=== PATIENT | female | born 1990 | race Caucasian/White ===

== ENCOUNTER → 2019-06-04 17:21 | Outpatient (CLI) | payer OTHER, SELFPAY ==
[2019-06-04 19:22] LABS: Basophils % 0.6 % (0.1-2.0); Eosinophils # 0.1 K/mm3 (0.0-0.4); Eosinophils % 1.8 % (0.1-12.0); Hematocrit 45.4 % (37.0-47.0); Hemoglobin 14.9 g/dL (12.2-16.2); Lymphocytes # 1.7 K/mm3 (0.7-4.5); Lymphocytes % 31.8 % (10-50); Mean Corpuscular HGB Conc 32.9 g/dL (31.8-35.4); Mean Corpuscular Hemoglobin 31.3 pg (27.0-31.2); Mean Corpuscular Volume 95.1 fl (81-99); Mean Platelet Volume 8.2 fl (7.4-10.4); Monocytes # 0.5 K/mm3 (0.1-1.0); Neutrophils # 3.1 K/mm3 (1.8-7.8); Neutrophils % 56.8 % (37.0-80.0); Platelet Count 210 K/mm3 (142-424); Red Blood Count 4.77 M/mm3 (4.20-5.40); Red Cell Distribution Width 13.2 % (11.5-17.5); White Blood Count 5.5 K/mm3 (4.8-10.8)
[2019-06-04 20:03] LABS: Alanine Aminotransferase 107 U/L (12-78); Albumin Level 4.4 gm/dL (3.4-5.0); Albumin/Globulin Ratio 0.9 (1.1-1.8); Alkaline Phosphatase 135 U/L (46-116); Aspartate Amino Transferase 102 U/L (15-37); Bilirubin,Total 0.4 mg/dL (0.2-1.0); Blood Urea Nitrogen 7 mg/dL (7-18); Calcium 8.9 mg/dL (8.5-10.1); Carbon Dioxide 21 mmol/L (21.0-32.0); Chloride 101 mmol/L (98-107); Chol/HDL Ratio 2.1 (1-3.5); Cholesterol 243 mg/dL (140-200); Creatinine,Serum 0.67 mg/dL (0.55-1.02); Estimated Glomerular Filt Rate 104 ml/min (>60); GFR (African American) 126 ML/MIN (>60); Globulin 4.9 gm/dl (1.3-3.2); Glucose 93 mg/dL (74-106); HDL Cholesterol 116 mg/dL (29-89); LDL Cholesterol 106 mg/dL (0-130); Sodium 138 mmol/L (136-145); T4 (Thyroxine) 10.3 ug/dl (4.7-13.3); Thyroid Stimulating Hormone 1.06 uIU/ml (0.358-3.740); Total Protein,Serum 9.3 gm/dL (6.4-8.2); Triglycerides 103 mg/dL (30-200); VLDL Cholesterol 21 mg/dL (0-40)
[2019-06-07 09:42] LABS: Vitamin D 25 Hydroxy 44.5 ng/mL (30.0-100.0)
== END ==
PROVIDERS: Visit Provider Physician Assistant
DX: F41.9 Anxiety disorder, unspecified (principal)
CPT/HCPCS: 80053; 80061; 82652; 84436; 84443; 85025

== ENCOUNTER → 2019-06-05 14:51 | Outpatient (CLI) | payer OTHER, SELFPAY ==
[2019-06-07 10:11] LABS: Hep A Ab, IgM Negative (Negative); Hepatitis B Core Antibody IgM Negative (Negative); Hepatitis B Surface Antigen Negative (Negative)
[2019-06-07 12:07] LABS: Hepatitis C Antibody >11.0 s/co ratio (0.0-0.9)
== END ==
PROVIDERS: PCP Physician Assistant; Visit Provider Physician Assistant
DX: R74.8 Abnormal levels of other serum enzymes (principal)
CPT/HCPCS: 80074

== ENCOUNTER → 2019-08-27 13:18 | Outpatient (CLI) | payer OTHER, SELFPAY ==
[2019-08-31 01:07] LABS: HCV Genotype Charge YES; HCV RNA (International Units) 12600000 IU/mL (.); Hepatitis C Genotype 1a (.)
== END ==
PROVIDERS: Visit Provider Physician Assistant
DX: Z86.19 Personal history of other infectious and parasitic diseases (principal); R76.8 Other specified abnormal immunological findings in serum
CPT/HCPCS: 36415; 87522; 87902

== ENCOUNTER 2021-07-28 18:40 | Emergency (ER) | payer MEDICAID, SELFPAY ==
[2021-07-28 18:41] VITALS: BP 159/111; PULSE 116; RESP 18; TEMP 36.8; O2SAT 98; BMI 21.4
[2021-07-28 19:30] VITALS: BP 148/94; PULSE 98; O2SAT 100
[2021-07-28 20:00] VITALS: BP 149/101; PULSE 91; O2SAT 100
[2021-07-28 20:31] VITALS: BP 148/96; PULSE 90; O2SAT 100
[2021-07-28 21:31] LABS: Microscopic, Urine URINE MICROSCOPIC (MICROSCOPIC)
[2021-07-28 21:36] LABS: Appearance,Urine CLOUDY (Clear); Bilirubin,Urine Negative (Negative); Blood, Urine Negative (Negative); Color,Urine DK YELLOW (Yellow); Glucose,Urine (UA) Negative (Negative); Ketones,Urine Negative (Negative); Leukocyte Esterase,Urine 3+ (Negative); Nitrate,Urine POSITIVE (Negative); PH,Urine 7.5 (5.0-8.5); Protein,Urine TRACE (Negative)
--- NOTE | 2021-07-28 21:36 | HMH.EDANX ---
ED Disposition Clinical Impression: Drug use Cellulitis Qualifiers: Site of cellulitis: face Qualified Code(s): L03.211 - Cellulitis of face Disposition: Home, Self-Care Condition on Discharge: Good Instructions: DI for Drug or Alcohol Withdrawal Additional Instructions: use meds and see pcp monday Prescriptions: Minocycline HCl [Minocycline HCl 100mg Tab*] 100 mg PO BID #20 tab Transmission Status: Pending to [place] [id number] Referrals: Samuel Crane MD [Primary Care Provider] - - Critical Care Critical Care Time: No Attestation: On 07/28/21, the high probability of a clinically significant, sudden or life threatening deterioration of the following system(s) required my full and direct attention, intervention and personal management. The time I documented below is in addition to time spent performing reported procedures but includes the following listed in this critical care notation. Medical Decision Making - Medical Records Medical records reviewed: Yes: I reviewed the patient's medical records. - Koko Inquiry Pt receiving controlled substance: No Vital Signs: 07/28/21 18:41 07/28/21 19:30 07/28/21 20:00 Temperature 98.3 F Temperature Source Oral Pulse Rate 98 H 91 H Pulse Rate [Right Radial] 116 H Respiratory Rate 18 Blood Pressure 148/94 H 149/101 H Blood Pressure [Right Arm] 159/111 H Blood Pressure Mean [Right Arm] 127 Blood Pressure Source [Right Arm] Automatic Cuff Blood Pressure Position [Right Arm] Sitting 02 Sat by Pulse Oximetry 98 100 100 Oxygen Delivery Method Room Air Room Air Room Air 07/28/21 20:31 Temperature Temperature Source Pulse Rate 90 Pulse Rate [Right Radial] Respiratory Rate Blood Pressure 148/96 H Blood Pressure [Right Arm] Blood Pressure Mean [Right Arm] Blood Pressure Source [Right Arm] Blood Pressure Position [Right Arm] 02 Sat by Pulse Oximetry 100 Oxygen Delivery Method - Lab Data Lab results reviewed: Yes: I reviewed the patient's lab results. Orders (Tests/Meds): ED MEDICATIONS Discontinued Medications Generic Name Dose Route Start Last Admin Trade Name Freq PRN Reason Stop Dose Admin Clonidine HCl 0.1 mg 07/28/21 21:17 07/28/21 21:26 Clonidine 0.1mg Tablet PO 07/28/21 21:18 0.1 mg ONCE ONE Administration Lorazepam 1 mg 07/28/21 21:17 07/28/21 21:25 Lorazepam 1mg Tablet PO 07/28/21 21:18 1 mg ONCE ONE Administration ORDERS Category Date Time Status C-Reactive Protein Stat Lab 07/28/21 21:22 Received Complete Blood Count Auto Diff Stat Lab 07/28/21 21:22 Received Comprehensive Metabolic Panel Stat Lab 07/28/21 21:22 Received Erythrocyte Sedimentation Rate Stat Lab 07/28/21 21:22 Received UDS [Drug Screen,Urine] Stat Lab 07/28/21 21:28 Received Urinalysis and Microscopic Stat Lab 07/28/21 21:28 Received Medical Decision Narrative: will give meds and have pt be seen in the ed Anxiety HPI - General Chief Complaint: Altered Mental Status Stated Complaint: MRSA on Face/Neck Time Seen by Provider: 07/28/21 20:00 Mode of Arrival: Ambulatory Source of Information: Patient, Medical Record Limitations: No Limitations Description of Symptoms (Recalled from ER Triage Doc. by RN): Pt states that she is currently trying to take herself off of heroin and ice. Pt states that she has not had heroin in 4 days and ice in 5 days. Pt advises that she is now beginning to hallucinate. Pt also expressess concern for some areas on her face and arms that she worries could be infected with MRSA d/t hx of. - History of Present Illness HPI narrative: pt with recent use of heroin and meth - pt with no fever and denied ivdu - also concern about mrsa MD complaint: anxiety Onset (ago): day(s) Symptoms: other (general anxiety ) Severity: moderate Quality: intermittent History of similar episodes: No Provoking factors: other (drug use ) Associated symptoms: denies other
[2021-07-28 21:46] LABS: Barbiturates Screen,Urine Negative ng/ml (<200)
[2021-07-28 21:47] LABS: Benzodiazepines Screen,Urine Positive ng/ml (<200)
[2021-07-28 21:48] LABS: Methadone Screen,Urine Negative ng/ml (<300); WBC,Urine TNTC #/hpf (0-3)
[2021-07-28 21:49] LABS: Bacteria,Urine 2+ /lpf; Cannabinoid Screen,Urine Negative ng/ml (<50)
[2021-07-28 21:50] LABS: Cocaine Screen,Urine Negative ng/ml (<300); Opiate Screen,Urine Negative ng/ml (<300)
[2021-07-28 21:51] LABS: Phencyclidine Screen,Urine Negative ng/ml (<25)
[2021-07-28 21:57] LABS: Basophils # 0.1 K/mm3 (0-0.2); Eosinophils # 0.3 K/mm3 (0.0-0.4); Eosinophils % 2.6 % (0.1-12.0); Hematocrit 42.9 % (37.0-47.0); Hemoglobin 14.2 g/dL (12.2-16.2); Lymphocytes # 2.8 K/mm3 (0.7-4.5); Lymphocytes % 28.6 % (10-50); Mean Corpuscular HGB Conc 33.2 g/dL (31.8-35.4); Mean Corpuscular Hemoglobin 28.5 pg (27.0-31.2); Mean Corpuscular Volume 85.9 fl (81-99); Mean Platelet Volume 8.6 fl (7.4-10.4); Monocytes # 0.5 K/mm3 (0.1-1.0); Monocytes % 5.4 % (1.7-9.3); Neutrophils # 6.2 K/mm3 (1.8-7.8); Neutrophils % 62.4 % (37.0-80.0); Platelet Count 299 K/mm3 (142-424); Red Blood Count 4.99 M/mm3 (4.20-5.40); Red Cell Distribution Width 13.3 % (11.5-17.5); White Blood Count 9.9 K/mm3 (4.8-10.8)
[2021-07-28 21:58] VITALS: BP 145/88; PULSE 90; RESP 19; TEMP 36.7; O2SAT 98
[2021-07-28 22:30] LABS: Erythrocyte Sedimentation Rate 15 mm/hr (0-20)
[2021-07-28 22:35] LABS: Alanine Aminotransferase 31 U/L (12-78); Albumin Level 4.1 g/dl (3.5-5.0); Albumin/Globulin Ratio 1.1 (1.1-1.8); Alkaline Phosphatase 91 U/L (38-126); Anion Gap 10.4 mEq/L (5-15); Aspartate Amino Transferase 38 U/L (14-36); Bilirubin,Total 0.3 mg/dl (0.2-1.3); Blood Urea Nitrogen 14 mg/dl (7-17); Calcium 8.7 mg/dl (8.4-10.2); Carbon Dioxide 24 mmol/L (22.0-30.0); Chloride 109 mmol/L (98-107); Creatinine Clearance Estimated 122 mL/min (50-200); Estimated Glomerular Filt Rate 117 ml/min (>60); GFR (African American) 141 ML/MIN (>60); Globulin 3.9 g/dL (1.3-3.2); Glucose 100 mg/dl (74-100); Potassium 4.4 mmoL/L (3.5-5.1); Sodium 139 mmol/L (136-145)
[2021-07-28 22:40] LABS: C-Reactive Protein 0.6 mg/L (0-4)
[2021-08-02 20:49] LABS: Amphetamine Positive (.); Amphetamine (GC/MS) 2052 ng/mL (Cutoff=500); Amphetamines Positive (.); Methamphetamine Positive (.); Methamphetamine (GC/MS) >3000 ng/mL (Cutoff=500)
== END 2021-07-28 22:04 | disposition home or self-care (01) ==
PROVIDERS: Emergency Provider Emergency Medicine; PCP Emergency Medicine
DX: L03.211 Cellulitis of face (principal); F19.90 Other psychoactive substance use, unspecified, uncomplicated; F41.8 Other specified anxiety disorders; F17.210 Nicotine dependence, cigarettes, uncomplicated; I10 Essential (primary) hypertension
CPT/HCPCS: 80053; 80305; 80324; 81001; 85025; 85651; 86140; 87086; 87088; 87186; 99282

== ENCOUNTER 2021-10-13 10:20 | Emergency (ER) | payer MEDICAID, SELFPAY ==
--- NOTE | 2021-10-13 10:26 | HMH.EDWNDL ---
ED Disposition Clinical Impression: (Ruled Out): Abscess Disposition: Home, Self-Care Condition on Discharge: Good Instructions: Cellulitis Prescriptions: Sulfamethoxazole/Trimethoprim [Bactrim DS tablet] 2 each PO BID #28 tab Transmission Status: Pending to [id number] Mupirocin Calcium [Mupirocin 2% Cream 15gm] 1 applicatio TP 5XDAY #14 gm Transmission Status: Pending to [id number] Referrals: Samuel Crane MD [Primary Care Provider] - - Critical Care Critical Care Time: No Attestation: On , the high probability of a clinically significant, sudden or life threatening deterioration of the following system(s) required my full and direct attention, intervention and personal management. The time I documented below is in addition to time spent performing reported procedures but includes the following listed in this critical care notation. Medical Decision Making - Koko Inquiry Pt receiving controlled substance: No Medical Decision Narrative: Patient presents with normal vital signs. Physical exam demonstrates superficial ulcerations/sores. These do not have the appearance of abscess or drainable infection. Low suspicion of bacterial infection however will empirically cover with Bactrim. Wound/Laceration HPI - General Stated Complaint: sores on face Time Seen by Provider: 10/13/21 10:30 Mode of Arrival: Ambulatory Source of Information: Patient Limitations: No Limitations - History of Present Illness HPI narrative: Patient presents for evaluation of multiple sores. The source of been present for approximately 2 weeks. They're located on her left ear, left maxillary prominence, forehead and around her right cuticle of her thumb. Patient has not had recent antibiotics. Patient has not required any incision and drainage. Patient states she has been able to express purulence from one location. No systemic symptoms reported Location: scalp, face - Related Data Previous Rx's Medication Instructions Recorded triamcinolone acetonide 0.5 % 1 applic TOPICAL TID #15 g 05/11/21 topical cream Minocycline HCl [Minocycline HCl 100 mg PO BID #20 tab 07/28/21 100mg Tab*] clonazepam 1 mg tablet 1 mg PO BID 20 Days #40 tab 07/30/21 clonazepam 1 mg tablet 1 mg PO TID 10 Days #30 tab 07/30/21 levofloxacin 500 mg tablet 500 mg PO DAILY #7 tab 07/30/21 lisinopril 10 mg tablet 10 mg PO DAILY #30 tab 09/02/21 Mupirocin Calcium [Mupirocin 2% 1 applicatio TP 5XDAY #14 gm 10/13/21 Cream 15gm] Sulfamethoxazole/Trimethoprim 2 each PO BID #28 tab 10/13/21 [Bactrim DS tablet] Allergies Allergy/AdvReac Type Severity Reaction Status Date / Time No Known Allergies Allergy Verified 07/30/21 13:13 [facility] History - Hepatitis A Screen Attestation statement:: This patient has been screened for Hepatitis A risk factors. Medical History: Reports:: Anxiety, Depression, Hypertension, MRSA Other Surgeries: Yes: Appendectomy Amputation: No Fractures: No - Social History Smoking Status: Current every day smoker Tobacco Type: cigarettes # Packs/Day (cigarettes): 1 Alcohol Intake: current Alcohol Intake Frequency:: 3 or more drinks per day Substance Use Type: heroin Occupational Status: unemployed Housing: house Household Members: family - Psychiatric History Pschychiatric History:: Reports:: Anxiety, Depression Family Hx:: Hypertension, Thyroid Disorder ROS Obtained: Yes All systems reviewed & no additional complaints - Constitutional Constitutional: Denies body ache, Denies chills, Denies fatigue Physical Exam - General General appearance: alert, in no apparent distress - Head Head exam: other (Superficial sores to the left ear, less than 1 cm. Superficial sore to the left maxillary prominence, approximately 1 cm. No fluctuance, no overlying erythema.) - Respiratory Respiratory exam: Present: normal lung sounds bilaterally. Absent: respiratory distress, wheezes - Cardi
[2021-10-13 10:28] VITALS: BP 146/80; PULSE 117; RESP 18; TEMP 36.8; O2SAT 97; BMI 21.6
[2021-10-13 10:42] VITALS: BP 142/72; PULSE 110; RESP 16; TEMP 36.8; O2SAT 98
== END 2021-10-13 10:43 | disposition home or self-care (01) ==
PROVIDERS: Emergency Provider Internal Medicine Critical Care Medicine; PCP Emergency Medicine
DX: K12.2 Cellulitis and abscess of mouth (principal); L02.01 Cutaneous abscess of face; H60.02 Abscess of left external ear; F41.8 Other specified anxiety disorders; F17.210 Nicotine dependence, cigarettes, uncomplicated
CPT/HCPCS: 99281

== ENCOUNTER → 2022-12-13 23:23 | Outpatient (CLI) | payer OTHER, SELFPAY ==
[2022-12-13 18:52] LABS: Basophils # 0.1 K/mm3 (0-0.2); Basophils % 0.6 % (0.1-2.0); Eosinophils # 0.2 K/mm3 (0.0-0.4); Eosinophils % 1.9 % (0.1-12.0); Hematocrit 40.3 % (37.0-47.0); Hemoglobin 13.6 g/dL (12.2-16.2); Lymphocytes # 1.7 K/mm3 (0.7-4.5); Lymphocytes % 20.8 % (10-50); Mean Corpuscular HGB Conc 33.7 g/dL (31.8-35.4); Mean Corpuscular Hemoglobin 30.7 pg (27.0-31.2); Mean Corpuscular Volume 90.9 fl (81-99); Mean Platelet Volume 8.7 fl (7.4-10.4); Monocytes # 0.8 K/mm3 (0.1-1.0); Monocytes % 9.1 % (1.7-9.3); Neutrophils # 5.6 K/mm3 (1.8-7.8); Neutrophils % 67.6 % (37.0-80.0); Platelet Count 258 K/mm3 (142-424); Red Blood Count 4.43 M/mm3 (4.20-5.40); Red Cell Distribution Width 12.8 % (11.5-17.5); White Blood Count 8.3 K/mm3 (4.8-10.8)
[2022-12-13 18:57] LABS: Alanine Aminotransferase 54 U/L (12-78); Albumin Level 4.6 g/dl (3.5-5.0); Albumin/Globulin Ratio 1.4 (1.1-1.8); Alkaline Phosphatase 128 U/L (38-126); Anion Gap 4.7 mEq/L (5-15); Aspartate Amino Transferase 44 U/L (14-36); Bilirubin,Total 0.6 mg/dl (0.2-1.3); Blood Urea Nitrogen 11 mg/dl (7-17); Calcium 9.2 mg/dl (8.4-10.2); Carbon Dioxide 26 mmol/L (22.0-30.0); Chloride 110 mmol/L (98-107); Chol/HDL Ratio 2.8 (1-3.5); Cholesterol 179 mg/dl (140-200); Estimated Glomerular Filt Rate 115 ml/min (>60); GFR (African American) 139 ML/MIN (>60); Globulin 3.4 g/dL (1.3-3.2); Glucose 93 mg/dl (74-100); HDL Cholesterol 64 mg/dl (40-60); Potassium 3.7 mmoL/L (3.5-5.1); Sodium 137 mmol/L (136-145); Triglycerides 77 mg/dl (30-150); VLDL Cholesterol 15 mg/dL (0-40)
[2022-12-13 19:08] LABS: Direct LDL Cholesterol 88.39 mg/dL (100-129)
[2022-12-13 19:12] LABS: Free T4 (Free Thyroxine) 1.26 ng/dl (0.78-2.19)
[2022-12-13 19:14] LABS: 25-OH Vitamin D, Total 19.3 ng/mL (30-100)
[2022-12-13 19:27] LABS: Thyroid Stimulating Hormone 0.64 uIU/mL (0.465-4.68)
[2022-12-16 00:08] LABS: ALT (SGPT) P5P 62 IU/L (0-40); Alpha 2-Macroglobulins, Qn 224 mg/dL (110-276); Apolipoprotein A-1 160 mg/dL (116-209); Bilirubin, Total 0.4 mg/dL (0.0-1.2); Fibrosis Score 0.12 (0.00-0.21); GGT 45 IU/L (0-60); Haptoglobin 142 mg/dL (33-278); Necroinflammat Activity Grade A1-Minimal activity (.); Necroinflammat Activity Score 0.31 (0.00-0.17)
[2022-12-16 18:08] LABS: HCV Genotype Charge YES; Hepatitis C Genotype 1a (.)
[2022-12-17 23:04] LABS: HIV Screen 4th Generation wRfx NON REACTIVE
[2022-12-17 23:05] LABS: Hep A Ab, Total NEGATIVE; Hep B Core Ab, Total NEGATIVE; Hep B Surface Ab, Qual NEGATIVE; Hepatitis B Surface Antigen REACTIVE; Hepatitis C Antibody REACTIVE
== END ==
PROVIDERS: PCP Emergency Medicine; Visit Provider Emergency Medicine
DX: B19.20 Unspecified viral hepatitis C without hepatic coma (principal); I10 Essential (primary) hypertension; R53.83 Other fatigue
CPT/HCPCS: 80053; 80061; 81596; 82306; 84439; 84443; 85025; 86703; 86704; 86706; 86708; 87340; 87380; 87522; 87902; G0432